=== PATIENT | male | born 1965 | race Caucasian/White ===

== ENCOUNTER 2016-11-28 09:32 | Day surgery (SDC) | payer BC ==
[~2016-11-28 09:32] MED LIST: Lactated Ringers 1,000 ML IV SCH; Lidocaine 1%/Sod Bicarbonate in NS 8.4% 1 ML Syringe PRN; Sodium Chloride 0.9% 10 ML Syringe FLUSH PRN
--- NOTE | 2016-11-28 10:37 | PCM.PREANE ---
Preanesthetic Assessment - Anesthesia/Transfusion/Family Hx Anesthesia History: Prior Anesthesia Without Reaction Type of Anesthesia Reaction: Other (see below) (nausea one time) Family History of Anesthesia Reaction: No Transfusion History: No Prior Transfusion(s) - Review of Systems General: No Symptoms Pulmonary: No Symptoms Cardiovascular: No Symptoms Gastrointestinal: No Symptoms Neurological: No Symptoms Other: Reports: Depression - Physical Assessment NPO Status Date: 11/27/16 NPO Status Time: 20:00 (pills this am with sip) O2 Sat by Pulse Oximetry: 96 Respiratory Rate: 18 Vital Signs: Last Vital Signs Temp 98.2 F 11/28/16 09:50 Pulse 66 11/28/16 09:50 Resp 18 11/28/16 09:50 BP 140/85 11/28/16 09:50 Pulse Ox 96 11/28/16 09:50 Height: 6 ft 4 in Weight: 109.769 kg ASA Class: 2 Mental Status: Alert & Oriented x3 Airway Class: Mallampati = 1 Dentition: Reports: Normal Dentition Thyro-Mental Finger Breadths: 3 Mouth Opening Finger Breadths: 3 ROM/Head Extension: Full Lungs: Clear to Auscultation, Normal Respiratory Effort Cardiovascular: Regular Rate, Regular Rhythm - Lab Values: Labs 11/15/16 hgb 14.7 plt 265 Lytesn WNL BUN 18 Cr 1.17 - Imaging/EKG Impressions: 11/15/16 EKG SR 67 baseline wander CXR Within normal limits - Allergies Allergies/Adverse Reactions: Allergies Allergy/AdvReac Type Severity Reaction Status Date / Time No Known Allergies Allergy Verified 11/27/16 16:05 - Blood Blood Available: No - Acknowledgements Anesthesia Type Planned: General Anesthesia Pt an Appropriate Candidate for the Planned Anesthesia: Yes Alternatives and Risks of Anesthesia Discussed w Pt/Guardian: Yes Pt/Guardian Understands and Agrees with Anesthesia Plan: Yes PreAnesthesia Questionnaire - Past Health History Medical/Surgical History: Denies Medical/Surgical History Cardiovascular History: Reports: High Cholesterol Respiratory History: Reports: Asthma (when really cold during winter), Pneumonia , Recurrent Gastrointestinal History: Reports: Colon Polyp Genitourinary History: Reports: None MANUFACTURING PRODUCTION MANAGER History: Reports: None Neurological History: Reports: None Psychiatric History: Reports: Depression Endocrine/Metabolic History: Reports: None Immunologic History: Reports: None Oncologic (Cancer) History: Reports: None Dermatologic History: Reports: Other (See Below) Other Dermatologic History: skin lump excision from back - Past Surgical History HEENT Surgical History: Reports: Oral Surgery GI Surgical History: Reports: Colonoscopy, Hernia Repair/Other Female Surgical History: Reports: None Male Surgical History: Reports: None Endocrine Surgical History: Reports: None Neurological Surgical History: Reports: None Musculoskeletal Surgical History: Reports: Other (See Below) Other Musculoskeletal Surgeries/Procedures:: bulging disc discetomy Oncologic Surgical History: Reports: None - SUBSTANCE USE Smoking Status *Q: Former Smoker (quit 15 years ago) Tobacco Use Within Last Twelve Months: No Second Hand Smoke Exposure: No Days Per Week of Alcohol Use: 2 Number of Drinks Per Day: 2 Total Drinks Per Week: 4 Recreational Drug Use History: No - HOME MEDS Home Medications: Home Meds Acetaminophen/HYDROcodone [[place] 325-5 MG] 1 - 2 tab PO Q6H PRN #40 tablet 11/18 [Rx] Aspirin 325 mg PO BID #84 tablet 11/19/16 [Rx] Clindamycin HCl 300 mg PO TID 11/22/16 [History] FLUoxetine HCl [Fluoxetine HCl] 10 mg PO DAILY 11/22/16 [History] Zolpidem Tartrate 5 mg PO BEDTIME 11/22/16 [History] Cyclobenzaprine [Flexeril] 10 mg PO Q8H PRN #40 tablet 11/28/16 [Rx] Hydrocodone/Acetaminophen [[place] 5-325 Tablet] 1 - 2 each PO Q6H PRN #40 tablet 11/28/16 [Rx] - CURRENT (IN HOUSE) MEDS Current Meds: Current Medications Lactated Ringer's (Ringers, Lactated) 1,000 mls @ 125 mls/hr IV ASDIRECTED GONZALO Stop: 11/28/16 23:00 Last Admin: 11/28/16 10:10 Dose: 125 mls/hr Lidocaine/Sodium Bicarbonate (Buffered Lidocaine 1% In Ns 8.4%) 0.25 ml .XX ONETIME PRN PRN Reason: Prior to IV Start Stop: 11/28/16 18:00 Last Admin: 11/28/16 10:09 Dose: 0.25 ml Sodium Chloride (Saline Flush) 10 ml FLUSH ASDIRECTED PRN PRN Reason: Keep Vein Open Stop: 11/28/16 18:00 Discontinued Medications Lactated Ringer's (Ringers, Lactated) 1,000 mls @ 125 mls/hr IV ASDIRECTED GONZALO Stop: 11/25/16 23:00 Lidocaine/Sodium Bicarbonate (Buffered Lidocaine 1% In Ns 8.4%) 0.25 ml .XX ONETIME PRN PRN Reason: Prior to IV Start Stop: 11/25/16 18:00 Sodium Chloride (Saline Flush) 10 ml FLUSH ASDIRECTED PRN PRN Reason: Keep Vein Open Stop: 11/25/16 18:00
[2016-11-28] MEDS ORDERED: Rocuronium 50 MG/5 ML Vial ONE (10:53)
[2016-11-28] MEDS ORDERED: Lactated Ringers 1,000 ML ONE ×2 (10:53→12:23)
[2016-11-28] MEDS ORDERED: Ondansetron 4 MG/2 ML SDV ONE (10:53)
[2016-11-28] MEDS ORDERED: Propofol 200 MG/20 ML SDV ONE ×2 (10:53→12:41)
[2016-11-28] MEDS ORDERED: ceFAZolin 1 GM Vial ONE (10:53)
[2016-11-28] MEDS ORDERED: Midazolam 1 MG/ML 2 ML SDV ONE (10:53)
[2016-11-28] MEDS ORDERED: Lidocaine 1% 4 ML ONE ×2 (10:53→13:35)
[2016-11-28] MEDS ORDERED: fentaNYL 250 MCG/5 ML SDV ONE (10:53)
[2016-11-28] MEDS ORDERED: Dexamethasone 4 MG/ML SDV ONE (11:35)
[2016-11-28] MEDS ORDERED: HYDROmorphone 0.5 MG/0.5 ML Syringe IVPUSH PRN (11:40)
[2016-11-28] MEDS ORDERED: fentaNYL 100 MCG/2 ML SDV IVPUSH PRN (11:40)
[2016-11-28] MEDS ORDERED: Ondansetron 4 MG/2 ML SDV IVPUSH PRN (11:40)
[2016-11-28] MEDS ORDERED: Meperidine PF 50 MG/ML Syringe IVPUSH PRN (11:40)
[2016-11-28] MEDS ORDERED: HYDROmorphone 1 MG/ML Syringe ONE (11:58)
[2016-11-28] MEDS: Bupivacaine 0.25% 30 ML SDV ONE ×2 (12:14→12:35)
[2016-11-28] MEDS ORDERED: Neostigmine Methylsulfate 10 MG/10 ML MDV ONE (12:20)
[2016-11-28] MEDS ORDERED: Glycopyrrolate 0.2 MG/ML SDV ONE ×2 (12:20)
[2016-11-28] MEDS ORDERED: fentaNYL 100 MCG/2 ML SDV ONE (12:48)
--- NOTE | 2016-11-28 12:53 | PCM.POSTAN ---
POST ANESTHESIA ASSESSMENT - MENTAL STATUS Mental Status: Alert, Oriented - VITAL SIGNS Pulse Rate: 77 SaO2: 95 Resp Rate: 10 Blood Pressure: 125/85 Temperature: 37.2 C - RESPIRATORY Respiratory Status: Respiratory Rate WNL, Airway Patent, O2 Saturation Stable - CARDIOVASCULAR CV Status: Pulse Rate WNL, Blood Pressure Stable - GASTROINTESTINAL GI Status: No Symptoms - PAIN Pain Score: 10 - POST OP HYDRATION Hydration Status: Adequate & Stable
[2016-11-28] MEDS ORDERED: Ropivacaine 0.5% 5 MG/ML 30 ML SDV ONE (13:05)
[2016-11-28] MEDS ORDERED: EPINEPHrine 1 MG/ML SDV ONE (13:06)
--- NOTE | 2016-11-28 13:13 | CR ---
Left knee: Two fluoroscopic spot views were obtained of the left knee utilizing C-arm device. Study shows surgery for quadriceps tendon repair. Fluoroscopy time is given as 12.2 seconds. Impression: 1. Operative study as described above. Diagnostic code #2
--- NOTE | 2016-11-28 13:51 | PCM48HPAN ---
Post Anesthesia Note - EVALUATION WITHIN 48HRS OF ANESTHETIC Vital Signs in Normal Range: Yes Patient Participated in Evaluation: Yes Respiratory Function Stable: Yes Airway Patent: Yes Cardiovascular Function Stable: Yes Hydration Status Stable: Yes Pain Control Satisfactory: Yes Nausea and Vomiting Control Satisfactory: Yes Mental Status Recovered: Yes
--- NOTE | 2016-11-28 14:09 | PCM.SN ---
- Free Text/Narrative Note: Anesthesia Note: Date: 11/28/16 Time Out: 1300 Start: 1310 Stop: 1343 Diagnosis: Surgical Procedure: Procedure: Left Femoral Nerve Block Under US Guidance for post operative pain control requested by Dr. Askew. Patient chart reviewed, allergies noted, and risk/benefits discussed with consent obtained. Patient placed in supine position, monitors/alarms on, O2 placed via nasal cannula at ___LPM. IV sedation titrated to effect. HR: 70 RR: 12 BP: 145/87 SPo2: 99% Sterile technique noted with sterile gloves, cap, mask, and sterile drapes. Left groin area prepped with chloroprep times two. Femoral artery, femoral vein, and femoral nerve branch visualized under US guidance (sterile sleeve) noted. Area localized with 1% lidocaine. Stimiplex 21 gauge 4 inch needle advanced under US guidance with quadricep and patellar knee stimulated at 0.8mV. Stimulation still noted with voltage decreased to 0.3mV. Stimulation ceased with 1ml of normal saline injected. Ropivacaine 0.5% with 1:200,000 epinephrine injected incrementally with negative aspirations for a total volume of 20ml's. Patient stated after block, pain in knee was subsiding.
[2016-11-28 16:23] VITALS: BP 132/79
--- NOTE | 2016-12-02 22:09 | PCM.OPNOTE ---
- General Post-Op/Procedure Note Date of Surgery/Procedure: 11/28/16 Operative Procedure(s): left quadriceps tendon repair Pre Op Diagnosis: left quadriceps tendon rupture Post-Op Diagnosis: Same Anesthesia Technique: General LMA, Local Primary Surgeon: Kaleb Askew Anesthesia Provider: Antonia Shine Materials Coordinator: Diamond Dempsey EBL in mLs: 50 Complications: None Condition: Good
--- NOTE | 2016-12-02 22:51 | OR ---
DATE OF OPERATION: 11/28/2016 SURGEON: Kaleb Askew MD OPERATION PERFORMED: Left quadriceps tendon repair. PREOPERATIVE DIAGNOSIS: Left quadriceps tendon rupture. POSTOPERATIVE DIAGNOSIS: Left quadriceps tendon rupture. ANESTHESIA: General LMA with local. ANESTHESIA PROVIDER: Antonia Shine CRNA. CASH ROOM CLERK: Diamond Dempsey PA-C. COMPLICATIONS: None. CONDITION: Stable. DESCRIPTION OF PROCEDURE: The patient was identified in the preop holding area. Proper site was marked and identified by the surgeon. The patient was taken back to the operating theater where after adequate anesthesia, the patient was placed on the radiolucent flat top table. The patient's left lower extremity had a nonsterile tourniquet applied and was then sterilely prepped and draped in the usual sterile fashion. OR time-out was performed. The patient received 2 g IV Ancef. At this time, a standard incision was made directly over the patella, this was taken down to the quadriceps tendon. There was noted to be a large tear in it. There was noted to be a large effusion and hematoma. This was then irrigated out of the knee at this time. The end of the quadriceps tendon was identified, it was not significantly retracted I think secondary to a small portion of it still being attached to the superior pole of the patella. At this time, a rongeur, a curette, and a #15 blade were used to roughen the edge of the superior pole of the patella for later attachment to the quadriceps. At this time, a #5 Ethibond suture was used in a Krackow stitch fashion through the quadriceps tendon. Two 0.062 K-wires were then placed from superior to inferior through the patella using C-arm fluoroscopy until they were parallel to one another through the midportion of the patella. At this time, a Hewson suture passer was placed from the superior to the inferior portion and an 0 Vicryl stitch was then brought through and one limb of FiberWire was brought through to the inferior pole of the patella; in a similar fashion, the other was brought through to the inferior pole of the patella. The 2 limbs of the FiberWire were then tightened with the patient's knee in roughly 45 degrees of flexion. There was noted to be good baptist of abutment of the quadriceps tendon to the superior pole of the patella. The stitch was then buried within the substance of the patellar tendon. At this time, another #5 FiberWire was used for overstitch of the medial retinaculum all the way to stopping short of repairing the lateral retinaculum to not overtighten the patella. At this time, it was found to have adequate watertight repair. 0 Vicryl was used over the knot to make sure that the knots were buried. 2-0 Vicryl pop-offs were then used subcutaneously and luna were used for the skin. The patient was placed in a sterile soft dressing and his hinged knee brace was locked in extension. The patient tolerated it well and will follow up in clinic in roughly 2 weeks. ESTIMATED BLOOD LOSS: 20ml MMODAL /[id number] MTDD
== END 2016-11-28 15:50 | disposition home or self-care (01) ==
LOC: JD.SDS 09:32
PROVIDERS: ATTEND Orthopaedic Surgery
DX: S76.112A Strain of left quadriceps muscle, fascia and tendon, initial encounter (principal); D69.6 Thrombocytopenia, unspecified; E78.00 Pure hypercholesterolemia, unspecified; J45.909 Unspecified asthma, uncomplicated; F32.9 Major depressive disorder, single episode, unspecified; Z87.01 Personal history of pneumonia (recurrent); Z87.891 Personal history of nicotine dependence; Z86.010 Personal history of colon polyps; Z98.890 Other specified postprocedural states; Z79.899 Other long term (current) drug therapy
CPT/HCPCS: 27385; 76000; J0171; J0690; J1100; J1170; J2250; J2405; J2710; J2795; J3010; J3490; J7120; 01250; 64450; 87641; J2704

== ENCOUNTER 2020-07-06 09:42 | Day surgery (SDC) | payer BC ==
--- NOTE | 2020-07-06 09:41 | PCM.SN.2 ---
- Free Text/Narrative Note: Time Out: 1047 Start: 1047 Stop: 1058 Surgical Procedure: Diagnosis: Current Procedure: Left interscalene block under US guidance for postoperative pain control requested by Dr. Askew. Patient chart reviewed, risk/benefits discussed with patient, consent obtained. Patient positioned supine, monitors/alarms on, oxygen placed via nasal cannula at 2 LPM. IV sedation administered: Versed 2mg IV, Fentanyl 50mcg IV given in preop prior to block placement. Left shoulder prepped with two chloropreps. Sterile drapes placed with aseptic technique noted. Under US guidance, left subclavian artery visualized along with the left brachial plexus. Plexus followed up to C6 cricoid level, and area localized with 2mls of 1% lidocaine. 22gauge 2 inch stimiplex needle advanced under US with 0.6mV with stimulation of biceps noted. Good stimulation noted with decreased voltage and absent at 0.3mVs. 1ml of Normal Saline injected with loss of stimulation noted to confirm needle not placed intraneurally. Incremental dosing of 5mls with negative aspiration noted prior to each injection of 0.5% ropivacaine with 1:200,000 epinephrine. Total volume=30mls. Please refer to nurses noted for vital signs. Hayde Persaud CRNA
[~2020-07-06 09:42] MED LIST changes: +Dexamethasone 4 MG/ML 5 ML MDV ONE; +EPINEPHrine 1 MG/ML SDV ONE; +HYDROmorphone 0.5 MG/0.5 ML Syringe ONE; +Ketorolac 30 MG/ML SDV ONE; +Lactated Ringers 1,000 ML ONE; +Lidocaine 1% 4 ML ONE; +Lidocaine 1%/Sod Bicarbonate in NS 8.4% 1 ML Syringe IDERM PRN; -Lidocaine 1%/Sod Bicarbonate in NS 8.4% 1 ML Syringe PRN; +Midazolam 1 MG/ML 2 ML SDV ONE; +Ondansetron 4 MG/2 ML SDV ONE; +Propofol 200 MG/20 ML SDV ONE; +Rocuronium 50 MG/5 ML Vial ONE; +Ropivacaine 0.5% 5 MG/ML 30 ML SDV ONE; +ceFAZolin 1 GM Vial ONE; +fentaNYL 250 MCG/5 ML SDV ONE
--- NOTE | 2020-07-06 10:12 | PCM.PREANE ---
Preanesthetic Assessment - Procedure Proposed Procedure: Left repair of biceps tendon - Anesthesia/Transfusion/Family Hx Anesthesia History: Prior Anesthesia Reaction Type of Anesthesia Reaction: Excessive Nausea/Vomiting Family History of Anesthesia Reaction: No Transfusion History: No Prior Transfusion(s) Intubation History: Unknown - Review of Systems General: No Symptoms Pulmonary: No Symptoms (Asthma/History of [place]/ Has not needed inhaler for awhile (3weeks- uses with exercise) /Quit smoking 1989) Cardiovascular: No Symptoms (Elevated cholesterol) Gastrointestinal: No Symptoms (GERD) Neurological: No Symptoms (History of back surgery) Other: Reports: None (Left arm pain with resistence rated 6/10.), Depression - Physical Assessment NPO Status Date: 07/05/20 NPO Status Time: 19:00 Vital Signs: HR: 66 B/P: 144/98 Sat: 95% Temp: 97.1 Resp: 16 Height: 1.96 m Weight: 119 kg ASA Class: 2 Mental Status: Alert & Oriented x3 Airway Class: Mallampati = 2 Dentition: Reports: Normal Dentition, Caries Thyro-Mental Finger Breadths: 3 Mouth Opening Finger Breadths: 3 ROM/Head Extension: Full Lungs: Clear to Auscultation, Normal Respiratory Effort Cardiovascular: Regular Rate, Regular Rhythm, No Murmurs - Lab Values: All labs reviewed and noted and within acceptable ranges to proceed with scheduled procedure. - Imaging/EKG Impressions: EKG: SR rate=62 - Allergies Allergies/Adverse Reactions: Allergies Allergy/AdvReac Type Severity Reaction Status Date / Time No Known Allergies Allergy Verified 07/05/20 14:56 - Anesthesia Plan Pre-Op Medication Ordered: None, Other (Scopalamine patch @1020) - Acknowledgements Anesthesia Type Planned: General Anesthesia (Left ISB under US guidance for post operative pain control requested by Dr. Askew.) Pt an Appropriate Candidate for the Planned Anesthesia: Yes Alternatives and Risks of Anesthesia Discussed w Pt/Guardian: Yes Pt/Guardian Understands and Agrees with Anesthesia Plan: Yes PreAnesthesia Questionnaire - Past Health History Medical/Surgical History: Denies Medical/Surgical History HEENT History: Reports: Impaired Vision Cardiovascular History: Reports: High Cholesterol Respiratory History: Reports: Asthma, Pneumonia, Recurrent Gastrointestinal History: Reports: Colon Polyp Genitourinary History: Reports: None MEDICAL RECRUITER History: Reports: None Musculoskeletal History: Reports: None Neurological History: Reports: None Psychiatric History: Reports: Depression Endocrine/Metabolic History: Reports: None Hematologic History: Reports: Idiopathic Thrombocytopenia Immunologic History: Reports: None Oncologic (Cancer) History: Reports: None Dermatologic History: Reports: Other (See Below) Other Dermatologic History: skin lump excision from back - Infectious Disease History Infectious Disease History: Reports: None - Past Surgical History HEENT Surgical History: Reports: Oral Surgery Cardiovascular Surgical History: Reports: None Respiratory Surgical History: Reports: None GI Surgical History: Reports: Colonoscopy, Hernia Repair/Other Female Surgical History: Reports: None Male Surgical History: Reports: None Endocrine Surgical History: Reports: None Neurological Surgical History: Reports: None Musculoskeletal Surgical History: Reports: Other (See Below) Other Musculoskeletal Surgeries/Procedures:: bulging disc discetomy Oncologic Surgical History: Reports: None - SUBSTANCE USE Tobacco Use Status *Q: Former Tobacco User Recreational Drug Use History: No - HOME MEDS Home Medications: Home Meds buPROPion [Wellbutrin XL] 300 mg PO DAILY 11/28/16 [History] Albuterol [Ventolin HFA] 2 puff INH Q4H PRN 07/05/20 [History] FLUoxetine HCl [Prozac] 20 mg PO DAILY 07/05/20 [History] Sildenafil Citrate [Viagra] 100 mg PO ASDIRECTED PRN 07/05/20 [History] Zolpidem [Ambien] 10 mg PO BEDTIME PRN 07/05/20 [History] buPROPion HCL [Wellbutrin Xl] 150 mg PO DAILY 07/05/20 [History] Acetaminophen/HYDROcodone [[place] 325-5 MG] 1 - 2 tab PO Q6H PRN #30 tablet 07/06/20 [Rx] Cyclobenzaprine [Flexeril] 10 mg PO BID PRN #20 tab 07/06/20 [Rx] - CURRENT (IN HOUSE) MEDS Current Meds: Current Medications Lactated Ringer's (Ringers, Lactated) 1,000 mls @ 125 mls/hr IV ASDIRECTED GONZALO Stop: 07/06/20 23:00 Lidocaine/Sodium Bicarbonate (Lidocaine 1%/Sod Bicarbonate In Ns 8.4% 1 Ml Syringe) 0.25 ml IDERM ONETIME PRN PRN Reason: Prior to IV Start Stop: 07/06/20 23:00 Sodium Chloride (Sodium Chloride 0.9% 10 Ml Syringe) 10 ml FLUSH ASDIRECTED PRN PRN Reason: Keep Vein Open Stop: 07/06/20 23:00 Discontinued Medications Cefazolin Sodium (Cefazolin 1 Gm Vial) Confirm Administered Dose 2 gm .ROUTE .ST-MED ONE Stop: 07/06/20 08:25 Dexamethasone (Dexamethasone 4 Mg/Ml 5 Ml Mdv) Confirm Administered Dose 20 mg .ROUTE .ST-MED ONE Stop: 07/06/20 08:25 Epinephrine HCl (Epinephrine 1 Mg/Ml Sdv) Confirm Administered Dose 1 mg .ROUTE .ST-MED ONE Stop: 07/06/20 06:54 Fentanyl (Fentanyl 250 Mcg/5 Ml Sdv) Confirm Administered Dose 250 mcg .ROUTE .ST-MED ONE Stop: 07/06/20 08:25 Hydromorphone HCl (Hydromorphone 0.5 Mg/0.5 Ml Syringe) Confirm Administered Dose 0.5 mg .ROUTE .ST-MED ONE Stop: 07/06/20 08:26 Lidocaine HCl (Xylocaine-Mpf 1%) Confirm Administered Dose 4 mls @ as directed .ROUTE .ST-MED ONE Stop: 07/06/20 06:54 Lidocaine HCl (Xylocaine-Mpf 1%) Confirm Administered Dose 4 mls @ as directed .ROUTE .ST-MED ONE Stop: 07/06/20 08:25 Lactated Ringer's (Ringers, Lactated) Confirm Administered Dose 1,000 mls @ as directed .ROUTE .ST-MED ONE Stop: 07/06/20 08:25 Ketorolac Tromethamine (Ketorolac 30 Mg/Ml Sdv) Confirm Administered Dose 30 mg .ROUTE .ST-MED ONE Stop: 07/06/20 08:25 Midazolam HCl (Midazolam 1 Mg/Ml 2 Ml Sdv) Confirm Administered Dose 2 mg .ROUTE .ST-MED ONE Stop: 07/06/20 08:25 Ondansetron HCl (Ondansetron 4 Mg/2 Ml Sdv) Confirm Administered Dose 8 mg .ROUTE .STK-MED ONE Stop: 07/06/20 08:25 Propofol (Propofol 200 Mg/20 Ml Sdv) Confirm Administered Dose 200 mg .ROUTE .ST-MED ONE Stop: 07/06/20 08:25 Rocuronium [place] (Rocuronium 50 Mg/5 Ml Vial) Confirm Administered Dose 50 mg .ROUTE .STK-MED ONE Stop: 07/06/20 08:25 Ropivacaine (Ropivacaine 0.5% 5 Mg/Ml 30 Ml Sdv) Confirm Administered Dose 30 ml .ROUTE .STK-MED ONE Stop: 07/06/20 06:54
[2020-07-06] MEDS ORDERED: HYDROmorphone 0.5 MG/0.5 ML Syringe ONE (10:33)
[2020-07-06] MEDS ORDERED: Ondansetron 4 MG/2 ML SDV ONE (10:39)
[2020-07-06] MEDS ORDERED: diphenhydrAMINE 50 MG/ML SDV ONE (10:39)
[2020-07-06] MEDS ORDERED: Succinylcholine/Sod PF 100 MG/5 ML SYRINGE IV ONE (10:39)
[2020-07-06] MEDS ORDERED: Scopolamine 1.5 MG Transdermal Patch TRDERM ONE (11:00)
[2020-07-06] MEDS ORDERED: Propofol 200 MG/20 ML SDV ONE (11:12)
[2020-07-06] MEDS ORDERED: ePHEDrine 50 MG/ML SDV ONE (11:32)
[2020-07-06] MEDS ORDERED: Albuterol 0.083% 2.5 MG/3 ML Neb Soln NEB PRN (11:34)
[2020-07-06] MEDS ORDERED: diphenhydrAMINE 50 MG/ML SDV IVPUSH PRN (11:34)
[2020-07-06] MEDS ORDERED: HYDROmorphone 0.5 MG/0.5 ML Syringe IVPUSH PRN (11:34)
[2020-07-06] MEDS ORDERED: ePHEDrine 50 MG/ML SDV IVPUSH PRN (11:34)
[2020-07-06] MEDS ORDERED: fentaNYL 100 MCG/2 ML SDV IVPUSH PRN (11:34)
[2020-07-06] MEDS ORDERED: Haloperidol Lactate 5 MG/ML SDV IVPUSH ONE (12:00)
--- NOTE | 2020-07-06 12:52 | PCM.POSTAN ---
POST ANESTHESIA ASSESSMENT - MENTAL STATUS Mental Status: Alert - VITAL SIGNS Vital Signs: Last Vital Signs Temp 97.6 07/06/20 1246 Pulse 79 07/06/20 1246 Resp 16 07/06/20 1246 BP 131/88 07/06/20 1246 Pulse Ox 93% 07/06/20 1246 - RESPIRATORY Respiratory Status: Respiratory Rate WNL, Airway Patent, O2 Saturation Stable, Supplemental Oxygen - CARDIOVASCULAR CV Status: Pulse Rate WNL, Blood Pressure Stable - GASTROINTESTINAL GI Status: No Symptoms - POST OP HYDRATION Hydration Status: Adequate & Stable
--- NOTE | 2020-07-06 13:07 | CR ---
Left elbow: Multiple fluoroscopic spot views were obtained of the left elbow utilizing C-arm device. Study shows procedural exam of reattachment of the biceps tendon to the radius. Fluoroscopy time is given as 17.1 seconds. Impression: 1. Procedural study as noted above. Diagnostic code #2
--- NOTE | 2020-07-06 13:09 | PCM48HPAN ---
Post Anesthesia Note - EVALUATION WITHIN 48HRS OF ANESTHETIC Vital Signs in Normal Range: Yes Patient Participated in Evaluation: Yes Respiratory Function Stable: Yes Airway Patent: Yes Cardiovascular Function Stable: Yes Hydration Status Stable: Yes Pain Control Satisfactory: Yes Nausea and Vomiting Control Satisfactory: Yes Mental Status Recovered: Yes Vital Signs: Last Vital Signs Temp 36.7 C 07/06/20 13:00 Pulse 69 07/06/20 13:00 Resp 15 07/06/20 13:00 BP 128/87 07/06/20 13:00 Pulse Ox 94 L 07/06/20 13:00
[2020-07-06 14:11] VITALS: BP 133/83; PULSE 62
--- NOTE | 2020-07-20 10:30 | PCM.OPNOTE ---
- General Post-Op/Procedure Note Date of Surgery/Procedure: 07/06/20 Operative Procedure(s): left distal biceps tendon repair Pre Op Diagnosis: left distal biceps tendon rupture Post-Op Diagnosis: Same Anesthesia Technique: General LMA, Local Primary Surgeon: Kaleb Askew Anesthesia Provider: Hayde Persaud Public Health Program Manager: Diamond Dempsey in mLs: 5 Complications: None Condition: Good
--- NOTE | 2020-07-20 15:14 | OR ---
DATE OF OPERATION: 07/06/2020 SURGEON: Kaleb Askew MD OPERATION PERFORMED: Left distal biceps tendon repair. PREOPERATIVE DIAGNOSIS: Left distal biceps tendon rupture. POSTOPERATIVE DIAGNOSIS: Left distal biceps tendon rupture. ANESTHESIA: General LMA with local. ANESTHESIA PROVIDER: Hayde Persaud CRNA TRACK VEHICLE REPAIRER: Diamond Dempsey PA-C ESTIMATED BLOOD LOSS: Less than 5 mL. COMPLICATIONS: None. CONDITION: Stable. DESCRIPTION OF PROCEDURE: The patient was identified in the preoperative holding area. Proper site was marked and identified by the surgeon. The patient was taken back to the operative theater, where after adequate anesthesia, the patient's left upper extremity was sterilely prepped and draped in the usual sterile fashion. OR time-out was performed. The patient received 2 g IV Ancef. The left upper extremity was exsanguinated. The tourniquet was insufflated to 200 mmHg. Standard transverse incision was made over the radial tuberosity. Blunt dissection was taken down to the biceps tendon. It was noted to be scarred in the antecubital fossa with a high-grade partial tear. The remaining fibers were resected. Any nonviable distal portion of the tendon was resected, and Arthrex FiberLoop was then used to whipstitch the distal portion of the tendon. Attention was turned to the radius. The previous fibers were cleared. Guide pin was then placed distally and 30 degrees ulnarly in proper position on C-arm fluoroscopy with both AP and lateral views. This was placed bicortically. The acorn reamer was then placed over the top 8 mm and unicortically drilled. Once this was completed, the Endobutton was placed onto the end of the tendon and it was shuttled through the far side of the guide pin drill hole. The button was then flipped and the tendon was shuttled down into the drill hole. Knot was then tied and the interference screw was placed, pushing the tendon ulnarly. It was found to have good interference and complete tendon. I was able to lift the forearm up through the biceps tendon with no signs of loosening or laxity with good fixation. C-arm fluoroscopy showed the Endobutton flipped in proper position. Adequate saline was irrigated through the wound. 3-0 Vicryl was used subcutaneously, and Monocryl was used for closure of the skin. The patient was placed in a sterile soft dressing and a posterior slab splint and sent to the PACU in stable condition. MMODAL /[id number]
== END 2020-07-06 14:28 | disposition home or self-care (01) ==
LOC: JD.SDS 09:42
PROVIDERS: ATTEND Orthopaedic Surgery
DX: S46.212A Strain of muscle, fascia and tendon of other parts of biceps, left arm, initial encounter (principal); F33.42 Major depressive disorder, recurrent, in full remission; E78.00 Pure hypercholesterolemia, unspecified; J45.909 Unspecified asthma, uncomplicated; Z87.891 Personal history of nicotine dependence; Z79.899 Other long term (current) drug therapy; Z98.890 Other specified postprocedural states; X58.XXXA Exposure to other specified factors, initial encounter
CPT/HCPCS: 24340; 76000; A9270; C1713; C1776; J0171; J0330; J0690; J1100; J1170; J1200; J1885; J2250; J2405; J2704; J2795; J3010; J7120; 01710; 64415; 76942